=== PATIENT | male | born 1990 | race Two or more races ===

== ENCOUNTER 2019-10-31 11:34 | Emergency (ER) | payer MEDICAID ==
[~2019-10-31] VITALS: Ht 167.6 cm; Wt 79.7 kg
[2019-10-31] MEDS ORDERED: DIPH,PERTUSS(ACELL),TET VAC/PF 0.5 ML IM-VACC ONE ×2 (12:00→14:46)
[2019-10-31] MEDS ORDERED: ALBUTEROL INHALER INH (12:03)
--- NOTE | 2019-10-31 12:13 | NUR ---
Pt ambulated back to room, changed into gown. pt resting in gurney, NAD, RESP WNL, VSS, P/W/D, WCTM. Waiting for CT and lac repair. call light on lap, family at
--- NOTE | 2019-10-31 12:45 | NUR ---
Pt in scan at this time
--- NOTE | 2019-10-31 13:10 | NUR ---
Pt denies wanting to file a polic report despite offer, reting in rola, BRIAN, P/W/D, FCS no SOB, RESP WNL, VSS. WCTM.
[2019-10-31 15:01] VITALS: BP 107/74
--- NOTE | 2019-10-31 15:04 | NUR ---
Patient/Caregiver given discharge instructions and they have confirmed that they understand the instructions. Patient ambulatory with steady gait.
== END 2019-10-31 15:05 | disposition home or self-care (01) ==
LOC: ED 12:37
DX: S01.01XA Laceration without foreign body of scalp, initial encounter (principal); S40.012A Contusion of left shoulder, initial encounter; S09.90XA Unspecified injury of head, initial encounter; Y04.8XXA Assault by other bodily force, initial encounter; Y93.89 Activity, other specified; Y92.488 Other paved roadways as the place of occurrence of the external cause; Y99.8 Other external cause status
CPT/HCPCS: 12002; 70450; 72125; 99285

== ENCOUNTER 2019-11-07 11:47 | Emergency (ER) | payer MEDICAID ==
[~2019-11-07] VITALS: Ht 165.1 cm; Wt 62.0 kg
[~2019-11-07 11:47] MED LIST: ALBUTEROL INHALER INH
[2019-11-07 11:49] VITALS: BP 126/81
--- NOTE | 2019-11-07 13:14 | NUR ---
STRATEGY ANALYST: PT AMBULATORY WITH STEADY GAIT TO ROOM FROM LOBBY AT THIS TIME.
== END 2019-11-07 13:55 | disposition home or self-care (01) ==
LOC: ED 13:41
DX: S01.01XD Laceration without foreign body of scalp, subsequent encounter (principal); X58.XXXD Exposure to other specified factors, subsequent encounter
CPT/HCPCS: 99281